=== PATIENT | male | born 1955 | race African-American/Black ===

== ENCOUNTER 2025-05-05 10:03 | Emergency (ER) | payer MEDICARE, MEDICAID ==
[~2025-05-05] VITALS: Ht 172.7 cm; Wt 64.0 kg
[~2025-05-05 10:03] MED LIST: ASPI-1079 PO; ATOR-2 PO; KEPP500 MT; TAMS-54 PO
[2025-05-05 10:15] VITALS: O2SAT 97
[2025-05-05] MEDS ORDERED: AM250 MT (10:44)
[2025-05-05 10:57] VITALS: BP 135/99; PULSE 60; RESP 15; TEMP 36.5; O2SAT 97
== END 2025-05-05 11:01 | disposition home or self-care (01) ==
LOC: ER 10:03
DX: H66.93 Otitis media, unspecified, bilateral (principal); I10 Essential (primary) hypertension; Z86.73 Personal history of transient ischemic attack (TIA), and cerebral infarction without residual deficits; Z79.899 Other long term (current) drug therapy
CPT/HCPCS: 99283